=== PATIENT | male | born 1945 | race African-American/Black ===

== ENCOUNTER 2022-09-06 16:16 | Emergency (ER) | payer MEDICARE ==
[~2022-09-06] VITALS: Ht 185.4 cm; Wt 89.0 kg
[2022-09-06] MEDS ORDERED: ASPIRIN 81MG TABLET PO ONE (17:30)
[2022-09-06 17:36] LABS: EOSINOPHILS % 1.8 % (0.0-5.0); HEMATOCRIT. 35.5 % (42.0-52.0); HEMOGLOBIN. 11.5 g/dL (14.0-18.0); LYMPHOCYTES % 31.5 % (20.0-50.0); MEAN CORPUSCULAR HEMOGLOBIN 26.1 pg (28.0-32.0); MEAN CORPUSCULAR VOLUME 80.3 fL (80.0-94.0); MEAN PLATELET VOLUME 9.1 fl (7.4-10.4); MONOCYTES % 6.2 % (2.0-8.0); NEUTROPHILS % 59.5 % (40.0-76.0); PLATELET 203 x1000/uL (130-400); RED BLOOD CELL COUNT 4.43 mill/uL (4.7-6.1); RED CELL DISTRIBUTION WIDTH 17.7 % (11.6-14.6)
[2022-09-06 17:44] LABS: CHLORIDE 108 mEq/L (98-107)
[2022-09-06 17:56] VITALS: BP 123/60
== END 2022-09-06 20:30 | disposition home or self-care (01) ==
LOC: ER 16:16
DX: S29.011A Strain of muscle and tendon of front wall of thorax, initial encounter (principal); I10 Essential (primary) hypertension; E11.9 Type 2 diabetes mellitus without complications; X58.XXXA Exposure to other specified factors, initial encounter; Y93.89 Activity, other specified; Y92.018 Other place in single-family (private) house as the place of occurrence of the external cause
CPT/HCPCS: 36415; 71045; 80053; 84484; 85025; 99284